=== PATIENT | female | born 1970 | race Caucasian/White ===

== ENCOUNTER 2021-05-23 15:30 | Emergency (ER) | payer BC ==
[~2021-05-23] VITALS: Ht 180.3 cm; Wt 111.1 kg
[~2021-05-23 15:30] MED LIST: ALPR0.5T PO; ZOLP10TA2 PO
[2021-05-23 15:44] VITALS: BP_SYST 186
== END 2021-05-23 16:30 | disposition home or self-care (01) ==
LOC: SED 15:30
DX: S80.862A Insect bite (nonvenomous), left lower leg, initial encounter (principal); S80.861A Insect bite (nonvenomous), right lower leg, initial encounter; L03.116 Cellulitis of left lower limb; L03.115 Cellulitis of right lower limb; I10 Essential (primary) hypertension; Z79.899 Other long term (current) drug therapy; W57.XXXA Bitten or stung by nonvenomous insect and other nonvenomous arthropods, initial encounter; Y93.89 Activity, other specified; Y92.89 Other specified places as the place of occurrence of the external cause; Y99.8 Other external cause status
CPT/HCPCS: 99283